=== PATIENT | female | born 1955 | race Caucasian/White ===

== ENCOUNTER → 2016-11-25 | Outpatient (CLI) | payer BC, OTHER ==
[~2016-11-25] MED LIST: ALL180 PO; CALC-342 PO; CHOL1000 PO; CHOL100010 PO; FLUT0.0529 INTNAS; HYOS0.1256 SL; IBUP-1050 PO; METR0.754; MINOXIDIL 5%; MTR600X PO; MULT-513 PO; OMEG12006 PO; SUMA100T16 PO
--- NOTE | 2016-11-26 14:09 | MAMMOGRAPHY REPORT ---
BILATERAL DIGITAL SCREENING MAMMOGRAM TOMOSYNTHESIS WITH CAD: 11/25/2016 CLINICAL HISTORY: Routine screening. Patient has no complaints. TECHNIQUE: Breast tomosynthesis in addition to standard 2D mammography was performed. Current study was also evaluated with a Computer Aided Detection (CAD) system. COMPARISON: Comparison is made to exams dated: 11/22/2015 mammogram, 11/13/2014 mammogram, 07/19/2013 mammogram, 03/02/2012 ultrasound, 03/02/2012 mammogram, and 02/26/2012 mammogram - [facility]. BREAST COMPOSITION: There are scattered areas of fibroglandular density in both breasts. FINDINGS: No suspicious mass, architectural distortion or cluster of microcalcifications is seen. IMPRESSION: ACR BI-RADS CATEGORY 1: NEGATIVE There is no mammographic evidence of malignancy. A 1 year screening mammogram is recommended. The p atient will receive written notification of the results. Approximately 10% of breast cancers are not detected with mammography. A negative mammographic repor t should not delay biopsy if a clinically suggestive mass is present. Marylou claire/dwight:11/25/2016 17:25:44 Certified Flight Instructor: Kirsten ORDONEZ(R)(M), [facility] letter sent: Normal 1/2 BI-RADS Code: ACR BI-RADS Category 1: Negative
== END | disposition home or self-care (01) ==
LOC: C.MAMM 10:16
PROVIDERS: ATTEND Obstetrics & Gynecology
DX: Z12.31 Encounter for screening mammogram for malignant neoplasm of breast (principal)

== ENCOUNTER → 2017-04-15 | Day surgery (SDC) | payer BC ==
[2017-04-07 13:06] VITALS: BMI 24.0
[~2017-04-15] VITALS: Ht 167.6 cm; Wt 68.2 kg
[~2017-04-15] MED LIST changes: -ALL180 PO; -CALC-342 PO; -CHOL100010 PO; -FLUT0.0529 INTNAS; -HYOS0.1256 SL; +LIDOCAINE HCL 2% 2 ML VIAL (20MG/ML) ONE; -METR0.754; -MTR600X PO; -OMEG12006 PO; +PROPOFOL IV EMULSION 10 MG/ML 20 ML VIAL IV ONE
[2017-04-15 12:39] VITALS: Ht 167.6 cm; Wt 68.2 kg
[2017-04-15 12:41] VITALS: TEMP 36.3
--- NOTE | 2017-04-15 13:14 | Endo History and Physical ---
History & Physical Date of Service: Apr 15, 2017. Chief Complaint: SCHATZKI RING Referring Physician: DR. CATALINO VALDEZ History of Present Illness For EGD Past Medical History Arthritis, Reflux, High Cholesterol Past Surgical History Hx Cardiac Surgery: No Hx Internal Defibrillator: No Hx Pacemaker: No Hx Abdominal Surgery: Yes (SHANNEN BSO) Hx of Implantable Prosthesis: No Hx Post-Op Nausea and Vomiting: No Hx Cancer Surgery: No Hx Thoracic Surgery: No Hx Orthopedic: No Hx Urinary Tract Surgery: No Family History None Social History Smoking Status: Never Smoker Hx Substance Use: No Hx Alcohol Use: Yes (RARELY) Allergies Coded Allergies: No Known Allergies (Verified , 04/15/17) Current Medications Reported Home Medications Medications Dose Route/Sig Max Daily Dose Days Date Category Dose Instructions Advil (Ibuprofen) 200 Mg Tab 400-600 Mg PO Q6H PRN 04/07/17 Reported Vitamin D3 (Cholecalciferol) 1,000 Unit Tab 1 Tab PO DAILY 04/07/17 Reported Imitrex (Sumatriptan Succinate) 100 Mg Tab 100 Mg PO UD PRN 08/23/14 Reported TAKE 1 TABLET , MAY REPEAT DOSE ONCE IN 2 HOURS / NEEDED FOR MIGRAINE HEADACHES [Minoxidil 5% Ext So] UD 08/23/14 Reported APPLY TOPICALLY DAILY FOR HAIR LOSS Mvi With Minerals (Multivitamins/Minerals) Tab 1 Tab PO DAILY 11/26/12 Reported Vital Signs Weight (Kilograms): 68.18 Height (Feet): 5 Height (Inches): 6 Date Time Temp Pulse Resp B/P (MAP) Pulse Ox O2 Delivery O2 Flow Rate FiO2 04/15/17 12:41 36.3 78 18 133/78 (96) 98 Room Air Physical Exam General Appearance: WD/WN Respiratory/Chest: Respiratory effort: no dyspnea Cardiovascular: Heart Auscultation: RRR Abdomen: Inspection & Palpation: soft (Dysphagia for EGD) Assessment and Plan Dysphagia for EGD
--- NOTE | 2017-04-15 13:28 | Discharge Instructions ---
Endoscopy Patient Instructions Date / Procedure(s) Performed Apr 15, 2017. EGD Allergy Information Coded Allergies: No Known Allergies (Verified , 04/15/17) Discharge Date / Findings Apr 15, 2017. Schatzki ring dilated Medication Instructions Restart Stopped Medication(s): resume meds Reported Home Medications Medications Dose Route/Sig Max Daily Dose Days Date Category Dose Instructions Advil (Ibuprofen) 200 Mg Tab 400-600 Mg PO Q6H PRN 04/07/17 Reported Vitamin D3 (Cholecalciferol) 1,000 Unit Tab 1 Tab PO DAILY 04/07/17 Reported Imitrex (Sumatriptan Succinate) 100 Mg Tab 100 Mg PO UD PRN 08/23/14 Reported TAKE 1 TABLET , MAY REPEAT DOSE ONCE IN 2 HOURS / NEEDED FOR MIGRAINE HEADACHES [Minoxidil 5% Ext So] UD 08/23/14 Reported APPLY TOPICALLY DAILY FOR HAIR LOSS Mvi With Minerals (Multivitamins/Minerals) Tab 1 Tab PO DAILY 11/26/12 Reported Provider Instructions Activity Restrictions - No exercising or heavy lifting for 24 hours. - Do not drink alcohol the day of the procedure. - Do not drive a car or operate machinery until the day after the procedure. - Do not make any important decisions or sign important papers in 24 hours after the procedure. Following Day: - Return to full activity which may include returning to work/school. Diet Start your diet with liquids and light foods (jello, soup, juice, toast). Then eat your usual diet if not nauseated. Treatment For Common After Affects For mild abdominal pain, bloating, or excessive gas: - Rest - Eat lightly - Lie on right side Follow-Up Information Follow-up with DR. CATALINO VALDEZ as scheduled Anesthesia Information What You Should Know You have had a procedure that required some medicine to reduce anxiety and discomfort. This treatment is called moderate sedation. After receiving the treatment, you may be sleepy, but you will be able to breathe on your own. The effects of the treatment may last for several hours. Follow these instructions along with Activity/Diet recommendations noted above: * Do NOT do anything where dizziness or clumsiness would be dangerous. * Rest quietly at home today, then you can be up and about tomorrow. * Have a responsible person stay with you the rest of today. * You may have had an I.V. today. If so, you may take the dressing off later today. Recommendations Call your doctor if: * Trouble breathing * Continuous vomiting for more than 24 hours * Temperature above 101 degrees * Severe abdominal pain or bloating * Pain not relieved by pain medicine ordered * There is increased drainage or redness from any incision * A large amount of rectal bleeding greater than 2-3 tablespoons. (If you had a polyp/s removed or have hemorrhoids, a small amount of blood - from the rectum is to be expected.) * You have any unanswered questions or concerns. IN THE EVENT OF A SERIOUS EMERGENCY, GO TO THE NEAREST EMERGENCY ROOM Your discharge instructions were prepared by provider Elmer Pedraza. Patient Instructions Signature Page Geri Otero Patient (or Guardian) Signature/Date: I have read and understand the instructions given to me by my caregivers. Caregiver/RN/Doctor Signature/Date: The above-named patient and/or guardian has received patient instructions on this date. + Original Patient Signature Page (only) stays with chart. Please make copy for patient.
--- NOTE | 2017-04-15 13:33 | GI REPORT ---
Procedure Date: 04/15/2017 1:04 PM Procedure: Upper GI endoscopy Indications: Dysphagia Medicines: Propofol total dose 240 mg IV, Lidocaine 80 mg IV Complications: No immediate complications. Estimated Blood Loss: Estimated blood loss was minimal. Procedure: Pre-Anesthesia Assessment: - Prior to the procedure, a History and Physical was performed, and patient medications, allergies and sensitivities were reviewed. The patient's tolerance of previous anesthesia was reviewed. - The risks and benefits of the procedure and the sedation options and risks were discussed with the patient. All questions were answered and informed consent was obtained. After obtaining informed consent, the endoscope was passed under direct vision. Throughout the procedure, the patient's blood pressure, pulse, and oxygen saturations were monitored continuously. The scope was introduced through the mouth, and advanced to the second part of duodenum. The upper GI endoscopy was accomplished without difficulty. The patient tolerated the procedure well. Findings: A moderate Schatzki ring (acquired) was found at the gastroesophageal junction. A guidewire was placed and the scope was withdrawn. Dilation was performed with a Savary dilator with no resistance at 60 Fr. Estimated blood loss was minimal. The entire examined stomach was normal. The examined duodenum was normal. Impression: - Moderate Schatzki ring. Dilated. - Normal stomach. - Normal examined duodenum. - No specimens collected. Recommendation: - Discharge patient to home (ambulatory). - Continue present medications. - Return to primary care physician PRN. Elmer Pedraza M.D. Elmer Pedraza MD 04/15/2017 1:32:44 PM This report has been signed electronically. Note Initiated On: 04/15/2017 1:04 PM I attest to the content of the Intraoperative Record and orders documented therein, exceptions below
[2017-04-15 14:07] VITALS: BP 150/87; PULSE 76; O2SAT 100
--- NOTE | 2017-04-15 14:08 | Anesthesiology Progress Note ---
Anesthesia Post Op Note Date & Time Apr 15, 2017 at 14:08 Vital Signs Pain Intensity: 0 Vital Signs Past 12 Hours Date Time Temp Pulse Resp B/P (MAP) Pulse Ox O2 Delivery O2 Flow Rate FiO2 04/15/17 14:07 76 16 150/87 (108) 100 Room Air 04/15/17 13:52 81 16 129/98 (108) 98 Room Air 04/15/17 13:37 88 16 126/77 (93) 97 Room Air 04/15/17 12:41 36.3 78 18 133/78 (96) 98 Room Air Notes Mental Status: alert / awake / arousable, participated in evaluation Pt Amnestic to Procedure: Yes Nausea / Vomiting: adequately controlled Pain: adequately controlled Airway Patency, RR, SpO2: stable & adequate BP & HR: stable & adequate Hydration State: stable & adequate Anesthetic Complications: no major complications apparent
== END | disposition home or self-care (01) ==
LOC: C.GI 12:19
PROVIDERS: ATTEND Internal Medicine Gastroenterology
DX: R13.10 Dysphagia, unspecified (principal); K22.2 Esophageal obstruction; K21.9 Gastro-esophageal reflux disease without esophagitis; E78.00 Pure hypercholesterolemia, unspecified; M19.90 Unspecified osteoarthritis, unspecified site; Z68.24 Body mass index [BMI] 24.0-24.9, adult; Z90.89 Acquired absence of other organs